=== PATIENT | female | born 1995 | race Caucasian/White ===

== ENCOUNTER 2017-04-24 10:26 | Emergency (ER) | payer MEDICAID ==
[~2017-04-24] VITALS: Ht 162.6 cm; Wt 117.9 kg
[~2017-04-24 10:26] MED LIST: DIFLUCAN150 MG PO; FLAGYL500 M1 PO; FLEXERIL10 MG PO; OMEPRAZOLE20 MG PO; ZANTAC 150150 MG PO; ZOFRAN24 MG PO; ZOLOFT 50MG TAB50 MG PO
--- OUTSIDE RECORDS SUMMARY | 2017-04-24 10:35 | External Medical Summary Rpt ---
Demographics Preferred Language Frisian Marital Status Unknown Faith Affiliation Unknown Race Unknown Ethnic Group Unknown Author Author , ZAYNAB WORTHY Address Unknown Phone Immunization Unable to retrieve immunization data due to connection failure with Immunization Registry. Please try again later.
--- OUTSIDE RECORDS SUMMARY | 2017-04-24 10:35 | External Medical Summary Rpt ---
Demographics Preferred Language Portuguese Marital Status Unknown Christian Affiliation Unknown Race Unknown Ethnic Group Unknown Author Author , ZAYNAB WORTHY Address Unknown Phone Immunization Unable to retrieve immunization data due to connection failure with Immunization Registry. Please try again later.
--- OUTSIDE RECORDS SUMMARY | 2017-04-24 10:35 | External Medical Summary Rpt ---
Author Author , ZAYNAB Pérez ZAYNAB Address Unknown Phone [email or web address] Purpose Continuity of Care Document - 01-04-2016 through 2016 Results Labs Lab Lab Date Result Refere Interp Status Commen Order Detail nces retati t Range on Urinalysis dipstick W Reflex Microscopic panel in Urine (02-17-2017 22:25) Bacteri 3+ O complet a 017 ed [Presen 22:25 ce] in Urine sedimen t by Light microsc opy Erythro OCC 0 complet cytes 017 ed [Presen 22:25 ce] in Urine sedimen t by Light microsc opy Epithel 20-50 0#/hp complet ial 017 f - ed cells.s 22:25 5#/hp quamous f [Presen ce] in Urine sedimen t by Microsc opy high power field Leukocy 5-10 O complet izabel 017 wbc/hpf ed [#/volu 22:25 me] in Urine Urinalysis dipstick W Reflex Microscopic panel in Urine (02-17-2017 22:25) Appeara CLEAR CLEAR complet nce of 017 ed Urine 22:25 Bilirub NEGATIV NEG complet in 017 E ed [Presen 22:25 ce] in Urine by Test strip Erythro NEGATIV NEG complet cytes 017 E ed [Presen 22:25 ce] in Urine Color YELLOW YELLOW complet of 017 ed Urine 22:25 Ketones NEGATIV NEG complet 017 E ed [Presen 22:25 ce] in Urine by Automat ed test strip Mucus 1+ NEG Abnorma complet [Presen 017 l ed ce] in 22:25 Urine sedimen t by Light microsc opy Nitrite NEGATIV NEG complet 017 E ed [Presen 22:25 ce] in Urine by Test strip Urobili 1.0 NEG complet nogen 017 ed [Presen 22:25 ce] in Urine by Test strip CHLAMYDIA AND GONORRHEA TESTING (01-04-2016 08:00) Chlamyd NEGATIV complet ia 016 E ed trachom 08:00 atis rRNA [Presen ce] in Unspeci fied specime n by Probe & target amplifi cation method Neisser NEGATIV complet ia 016 E ed gonorrh 08:00 oeae rRNA [Presen ce] in Unspeci fied specime n by Probe & target amplifi cation method Treponema pallidum IgG Ab [Presence] in Serum by Immunoassay (01-04-2016 08:00) Trepone NON-DALIA complet ma 016 CTIVE ed pallidu 08:00 m IgG Ab [Presen ce] in Serum by Immunoa ssay HEPATITIS C VIRUS SCREEN (01-04-2016 08:00) HEPATIT NON-DALIA complet IS C 016 CTIVE ed VIRUS 08:00 SCREEN HEPATITIS C VIRUS SCREEN (01-04-2016 08:00) IV DRUG NO complet USER 016 ed 08:00 MAN WHO NO complet SLEEPS 016 ed WITH 08:00 MEN DATE OF complet 016 6 ed SPECIME 08:00 N REFRIGE RATION SPECIME BLOOD complet N TYPE 016 ed 08:00 PREVIOU NO complet S 016 ed POSITIV 08:00 E HEPC ANTIBOD Y TEST HEPATIT Pending complet IS C 016 ed VIRUS 08:00 SCREEN CHLAMYDIA AND GONORRHEA TESTING (01-04-2016 08:00) COLLECT TV complet OR 016 ed 08:00 ETHNICI BLACK, complet TY 016 NON-HIS ed 08:00 PANIC KIT complet EXPIRAT 016 7 ed ION 08:00 DATE SYMPTOM NO complet S 016 ed 08:00 REASON VOLUNTE complet FOR 016 ER/MEDI ed REQUEST 08:00 SANTIAGO PROBLEM SPECIME URINE complet N 016 ed SOURCE 08:00 PREGNAN 04-11-2 NO complet T 016 ed 08:00 CHART [id number] complet NUMBER 016 ed 08:00 Chlamyd Pending complet ia 016 ed trachom 08:00 atis rRNA [Presen ce] in Unspeci fied specime n by Probe & target amplifi cation method Neisser Pending complet ia 016 ed gonorrh 08:00 oeae rRNA [Presen ce] in Unspeci fied specime n by Probe & target amplifi cation method Treponema pallidum IgG Ab [Presence] in Serum by Immunoassay (01-04-2016 08:00) COLLECT TV complet OR 016 ed 08:00 ETHNICI W complet TY 016 ed 08:00 PURPOSE DIAGNOS complet OF 016 TIC ed EXAM 08:00 SPECIME BLOOD complet N 016 ed SOURCE 08:00 CHART [id number] complet NUMBER 016 ed 08:00 Trepone Pending complet ma 016 ed pallidu 08:00 m IgG Ab [Presen ce] in Serum by Immunoa ssay
--- OUTSIDE RECORDS SUMMARY | 2017-04-24 10:35 | External Medical Summary Rpt ---
Author Author , ZAYNAB Pérez ZAYNAB Address Unknown Phone [email or web address] Purpose Continuity of Care Document - 01-04-2016 [...] NO complet T 016 ed 08:00 CHART [id number] complet NUMBER 016 ed 08:00 Chlamyd Pending [...] complet N 016 ed SOURCE 08:00 CHART [id number] complet NUMBER 016 ed 08:00 Trepone Pending complet ma 016 ed pallidu 08:00 m IgG Ab [Presen ce] in Serum by Immunoa ssay
--- OUTSIDE RECORDS SUMMARY | 2017-04-24 10:36 | External Medical Summary Rpt ---
Author Author ZAYNAB Gee, [employer] Address Unknown Phone Unavailable Results Choriogonadotropin.beta subunit [Units] in 24 hour Urine Observa Value Referen Units Interpr Notes Date tion ce etation Range Choriogon NEG No No No Mar 04 adotropin informati informati informati 2017 1:05 .beta on in on in on in AM subunit source source source [Units] data data data in 24 hour Urine Urinalysis dipstick W Reflex Microscopic panel in Urine Observa Value Referen Units Interpr Notes Date tion ce etation Range Appeara CLEAR CLEAR No No No February 17 nce of informa informa informa 2016 Urine tion in tion in tion in 10:25 source source source PM data data data Bacteri 3+ O No No No February 17 a informa informa informa 2016 [Presen tion in tion in tion in 10:25 ce] in source source source PM Urine data data data sedimen t by Light microsc opy Bilirub NEGATIV NEG No No No February 17 in E informa informa informa 2016 [Presen tion in tion in tion in 10:25 ce] in source source source PM Urine data data data by Test strip Erythro NEGATIV NEG No No No February 17 cytes E informa informa informa 2016 [Presen tion in tion in tion in 10:25 ce] in source source source PM Urine data data data Color YELLOW YELLOW No No No February 17 of informa informa informa 2017 Urine tion in tion in tion in 10:25 source source source PM data data data Glucose NEG No No No February 17 [Mass/vol informati informati informati 2016 ume] in on in on in on in 10:25 PM Urine by source source source Test data data data strip Ketones NEGATIV NEG mg/dL No No February 17 E informa informa 2016 [Presen tion in tion in 10:25 ce] in source source PM Urine data data by Automat ed test strip Mucus 1+ NEG No Abnorma No February 17 [Presen informa l informa 2016 ce] in tion in tion in 10:25 Urine source source PM sedimen data data t by Light microsc opy Nitrite NEGATIV NEG No No No February 17 E informa informa informa 2016 [Presen tion in tion in tion in 10:25 ce] in source source source PM Urine data data data by Test strip pH of 5.0 - 8.5 No Normal No February 17 Urine informati informati 2017 on in on in 10:25 PM source source data data Protein NEG mg/dL High No February 17 [Mass/vol informati 2017 ume] in on in 10:25 PM Urine by source Automated data test strip Erythro OCC 0 rbc/hpf No No February 17 cytes informa informa 2016 [Presen tion in tion in 10:25 ce] in source source PM Urine data data sedimen t by Light microsc opy Specific 1.005 - No Normal No February 17 gravity 1.030 informati informati 2016 of Urine on in on in 10:25 PM source source data data Epithel 20-50 0 - 5 #/hpf No No February 17 ial informa informa 2017 cells.s tion in tion in 10:25 quamous source source PM data data [Presen ce] in Urine sedimen t by Microsc opy high power field Urobili 1.0 NEG E.U./dL No No February 17 nogen informa informa 2016 [Presen tion in tion in 10:25 ce] in source source PM Urine data data by Test strip Leukocy [5 O wbc/hpf No No February 17 izabel wbc/hpf informa informa 2016 [#/volu ; 10 tion in tion in 10:25 me] in wbc/hpf source source PM Urine ] data data Choriogonadotropin.beta subunit [Units] in 24 hour Urine Observa Value Referen Units Interpr Notes Date tion ce etation Range Choriogon NEG No No No February 17 adotropin informati informati informati 2017 .beta on in on in on in 10:25 PM subunit source source source [Units] data data data in 24 hour Urine Urinalysis dipstick W Reflex Microscopic panel in Urine Observa Value Referen Units Interpr Notes Date tion ce etation Range Appeara CLEAR CLEAR No No No February 17 nce of informa informa informa 2016 Urine tion in tion in tion in 10:25 source source source PM data data data Bilirub NEGATIV NEG No No No February 17 in E informa informa informa 2016 [Presen tion in tion in tion in 10:25 ce] in source source source PM Urine data data data by Test strip Erythro NEGATIV NEG No No No February 17 cytes E informa informa informa 2016 [Presen tion in tion in tion in 10:25 ce] in source source source PM Urine data data data Color YELLOW YELLOW No No No February 17 of informa informa informa 2016 Urine tion in tion in tion in 10:25 source source source PM data data data Glucose NEG No No No February 17 [Mass/vol informati informati informati 2016 ume] in on in on in on in 10:25 PM Urine by source source source Test data data data strip Ketones NEGATIV NEG mg/dL No No February 17 E informa informa 2016 [Presen tion in tion in 10:25 ce] in source source PM Urine data data by Automat ed test strip Mucus 1+ NEG No Abnorma No February 17 [Presen informa l informa 2016 ce] in tion in tion in 10:25 Urine source source PM sedimen data data t by Light microsc opy Nitrite NEGATIV NEG No No No February 17 E informa informa informa 2016 [Presen tion in tion in tion in 10:25 ce] in source source source PM Urine data data data by Test strip pH of 5.0 - 8.5 No Normal No February 17 Urine informati informati 2016 on in on in 10:25 PM source source data data Protein NEG mg/dL High No February 17 [Mass/vol informati 2016 ume] in on in 10:25 PM Urine by source Automated data test strip Specific 1.005 - No Normal No February 17 gravity 1.030 informati informati 2016 of Urine on in on in 10:25 PM source source data data Urobili 1.0 NEG E.U./dL No No February 17 nogen informa informa 2016 [Presen tion in tion in 10:25 ce] in source source PM Urine data data by Test strip CHLAMYDIA AND GONORRHEA TESTING Observa Value Referen Units Interpr Notes Date tion ce etation Range COLLECT TV No No No No Jan 03 OR informa informa informa informa 2016 tion in tion in tion in tion in 8:00 AM source source source source data data data data ETHNICI BLACK, No No No No Jan 03 TY NON-HIS informa informa informa informa 2016 PANIC tion in tion in tion in tion in 8:00 AM source source source source data data data data KIT No No No No Jan 03 EXPIRAT 7 informa informa informa informa 2016 ION tion in tion in tion in tion in 8:00 AM DATE source source source source data data data data SYMPTOM NO No No No No Jan 03 S informa informa informa informa 2016 tion in tion in tion in tion in 8:00 AM source source source source data data data data REASON VOLUNTE No No No No Jan 03 FOR ER/MEDI informa informa informa informa 2016 REQUEST SANTIAGO tion in tion in tion in tion in 8:00 AM PROBLEM source source source source data data data data SPECIME URINE No No No No Jan 03 N informa informa informa informa 2016 SOURCE tion in tion in tion in tion in 8:00 AM source source source source data data data data PREGNAN NO No No No No Jan 03 T informa informa informa informa 2016 tion in tion in tion in tion in 8:00 AM source source source source data data data data CHART [id number] No No No No Jan 03 NUMBER informa informa informa informa 2016 tion in tion in tion in tion in 8:00 AM source source source source data data data data Chlamyd NEGATIV No No No NEGATIV Jan 03 ia E informa informa informa E 2016 trachom tion in tion in tion in RESULT= 8:00 AM atis source source source WITHIN rRNA data data data NORMAL [Presen ce] in LIMITSP Unspeci OSITIVE fied specime RESULT= n by Probe & ABNORMA target LEQUIVO SANTIAGO amplifi RESULT= cation method INDETER MINATEU NSATISF ACTORY RESULT= INVALID Neisser NEGATIV No No No NEGATIV Jan 03 ia E informa informa informa E 2016 gonorrh tion in tion in tion in RESULT= 8:00 AM oeae source source source WITHIN rRNA data data data NORMAL [Presen ce] in LIMITSP Unspeci OSITIVE fied specime RESULT= n by Probe & ABNORMA target LEQUIVO SANTIAGO amplifi RESULT= cation method INDETER MINATEU NSATISF ACTORY RESULT= INVALID THE APTIMA COMBO 2 ASSAY IS NOT INTENDE D FOR THE EVALUAT ION OF SUSPECT EDSEXUA L ABUSE OR FOR OTHER MEDICO- LEGAL INDICAT IONS. FOR THOSE PATIENT S FORWHOM A FALSE POSITIV E RESULT MAY HAVE ADVERSE PSYCHO- SOCIAL IMPACT, [facility] MM[facility]DS RETESTI NG.\.br \This report contain s patient informa tion that must be protect ed in accorda nce with the Health Insuran ce Portabi lity and Account ability Act. Treponema pallidum IgG Ab [Presence] in Serum by Immunoassay Observa Value Referen Units Interpr Notes Date tion ce etation Range COLLECT TV No No No No Jan 03 OR informa informa informa informa 2016 tion in tion in tion in tion in 8:00 AM source source source source data data data data ETHNICI W No No No No Jan 03 TY informa informa informa informa 2016 tion in tion in tion in tion in 8:00 AM source source source source data data data data PURPOSE DIAGNOS No No No No Jan 03 OF TIC informa informa informa informa 2016 EXAM tion in tion in tion in tion in 8:00 AM source source source source data data data data SPECIME BLOOD No No No No Jan 03 N informa informa informa informa 2016 SOURCE tion in tion in tion in tion in 8:00 AM source source source source data data data data CHART [id number] No No No No Jan 03 NUMBER informa informa informa informa 2016 tion in tion in tion in tion in 8:00 AM source source source source data data data data Trepone NON-DALIA No No No METHOD Jan [address] informa informa informa OF 2016 pallidu tion in tion in tion in ANALYSI 8:00 AM m IgG source source source S: Ab data data data EIANORM [Presen AL ce] in RANGE: Serum NON-DALIA by CTIVE\. Immunoa br\This ssay report contain s patient informa tion that must be protect ed in [place] nce with the Health Insuran ce Portabi lity and Account ability Act. HEPATITIS C VIRUS SCREEN Observa Value Referen Units Interpr Notes Date tion ce etation Range IV DRUG NO No No No No Jan 03 USER informa informa informa informa 2016 tion in tion in tion in tion in 8:00 AM source source source source data data data data MAN WHO NO No No No No Jan 03 SLEEPS informa informa informa informa 2016 WITH tion in tion in tion in tion in 8:00 AM MEN source source source source data data data data DATE OF No No No No Jan 03 6 informa informa informa informa 2016 SPECIME tion in tion in tion in tion in 8:00 AM N source source source source REFRIGE data data data data RATION SPECIME BLOOD No No No No Jan 03 N TYPE informa informa informa informa 2016 tion in tion in tion in tion in 8:00 AM source source source source data data data data PREVIOU NO No No No No Jan 03 S informa informa informa informa 2016 POSITIV tion in tion in tion in tion in 8:00 AM E HEPC source source source source ANTIBOD data data data data Y TEST HEPATIT NON-DALIA No No No METHOD Jan 03 IS C CTIVE informa informa informa OF 2016 VIRUS tion in tion in tion in ANALYSI 8:00 AM SCREEN source source source S: data data data EIANORM AL RANGE: NON REACTIV E\.br\T his report contain s patient informa tion that must be protect ed in accorda nce with the Health Insuran ce Portabi lity and Account ability Act. HEPATITIS C VIRUS SCREEN Observa Value Referen Units Interpr Notes Date tion ce etation Range IV DRUG NO No No No No Jan 03 USER informa informa informa informa 2016 tion in tion in tion in tion in 8:00 AM source source source source data data data data MAN WHO NO No No No No Jan 03 SLEEPS informa informa informa informa 2016 WITH tion in tion in tion in tion in 8:00 AM MEN source source source source data data data data DATE OF No No No No Jan 03 6 informa informa informa informa 2016 SPECIME tion in tion in tion in tion in 8:00 AM N source source source source REFRIGE data data data data RATION SPECIME BLOOD No No No No Jan 03 N TYPE informa informa informa informa 2016 tion in tion in tion in tion in 8:00 AM source source source source data data data data PREVIOU NO No No No No Jan 03 S informa informa informa informa 2016 POSITIV tion in tion in tion in tion in 8:00 AM E HEPC source source source source ANTIBOD data data data data Y TEST HEPATIT Pending No No No \.br\Jan 03 IS C informa informa informa is 2016 VIRUS tion in tion in tion in report 8:00 AM SCREEN source source source contain data data data s patient informa tion that must be protect ed in accorda nce with the Health Insuran ce Portabi lity and Account ability Act. CHLAMYDIA AND GONORRHEA TESTING Observa Value Referen Units Interpr Notes Date tion ce etation Range COLLECT TV No No No No Jan 03 OR informa informa informa informa 2016 tion in tion in tion in tion in 8:00 AM source source source source data data data data ETHNICI BLACK, No No No No Jan 03 TY NON-HIS informa informa informa informa 2016 PANIC tion in tion in tion in tion in 8:00 AM source source source source data data data data KIT No No No No Jan 03 EXPIRAT 7 informa informa informa informa 2016 ION tion in tion in tion in tion in 8:00 AM DATE source source source source data data data data SYMPTOM NO No No No No Jan 03 S informa informa informa informa 2016 tion in tion in tion in tion in 8:00 AM source source source source data data data data REASON VOLUNTE No No No No Jan 03 FOR ER/MEDI informa informa informa informa 2016 REQUEST SANTIAGO tion in tion in tion in tion in 8:00 AM PROBLEM source source source source data data data data SPECIME URINE No No No No Jan 03 N informa informa informa informa 2016 SOURCE tion in tion in tion in tion in 8:00 AM source source source source data data data data PREGNAN NO No No No No Jan 03 T informa informa informa informa 2016 tion in tion in tion in tion in 8:00 AM source source source source data data data data CHART [id number] No No No No Jan 03 NUMBER informa informa informa informa 2016 tion in tion in tion in tion in 8:00 AM source source source source data data data data Chlamyd Pending No No No No Jan 03 ia informa informa informa informa 2016 trachom tion in tion in tion in tion in 8:00 AM atis source source source source rRNA data data data data [Presen ce] in Unspeci fied specime n by Probe & target amplifi cation method Neisser Pending No No No \.br\Jan 03 ia informa informa informa is 2016 gonorrh tion in tion in tion in report 8:00 AM oeae source source source contain rRNA data data data s [Presen patient ce] in Unspeci informa fied tion specime that n by must be Probe & target protect ed in amplifi accorda cation nce method with the Health Insuran ce Portabi lity and Account ability Act. Treponema pallidum IgG Ab [Presence] in Serum by Immunoassay Observa Value Referen Units Interpr Notes Date tion ce etation Range COLLECT TV No No No No Jan 03 OR informa informa informa informa 2016 tion in tion in tion in tion in 8:00 AM source source source source data data data data ETHNICI W No No No No Jan 03 TY informa informa informa informa 2016 tion in tion in tion in tion in 8:00 AM source source source source data data data data PURPOSE DIAGNOS No No No No Jan 03 OF TIC informa informa informa informa 2016 EXAM tion in tion in tion in tion in 8:00 AM source source source source data data data data SPECIME BLOOD No No No No Jan 03 N informa informa informa informa 2016 SOURCE tion in tion in tion in tion in 8:00 AM source source source source data data data data CHART [id number] No No No No Jan 03 TARI eason informa informa informa 2016 tion in tion in tion in tion in 8:00 AM source source source source data data data data Trepone Pending No No No \.br\Jan 03 chacha eason informa informa is 2016 pallidu tion in tion in tion in report 8:00 AM m IgG source source source contain Ab data data data s [Presen patient ce] in Serum informa by tion Immunoa that ssay must be protect ed in accorda nce with the Health Insuran ce Portabi lity and Account ability Act.
--- OUTSIDE RECORDS SUMMARY | 2017-04-24 10:36 | External Medical Summary Rpt ---
[...] source source data data data data CHART [id number] No No No No Jan 03 NUMBER [...] HAVE ADVERSE PSYCHO- SOCIAL IMPACT, [facility].\.br \This report contain s [...] source source data data data data CHART [id number] No No No No Jan 03 NUMBER [...] tion that must be protect ed in [place] nce with the Health Insuran ce Portabi [...] source source data data data data CHART [id number] No No No No Jan 03 NUMBER [...] source source data data data data CHART [id number] No No No No Jan 03 TARI [...]
[2017-04-24] MEDS ORDERED: SKYLA13.5 MG IU (10:39)
--- NOTE | 2017-04-24 11:06 | Urgent Treatment Center Report ---
History of Present Issue Date/Time Seen by Provider 04/24/17 1040 Visit Reason Pt arrived:Walked Presenting Problem:PT STATES MIGRAINE FOR PAST TWO WEEKS Location if Accident: Onset of symptoms date/time:/ or onset unknown for:MEDICAL HX UNKNOWN Have you (or family members/close friends) recently traveled outside the [place]? N If Yes, where/when: Have you had exposure to infectious disease within the past month? TB? Other? Specify: c/o another migraine. Reporting migraine x 2 weeks. Once discussed, sounds like headaches that has developed into a migraine since yesterday. Not uncommon per patient. Nausea and light sensitivity now. "I don't get that until they get bad like this". reporting headache 07/04. All over. Can't localize. Ibuprofen and tylenol hasn't helped. Hasn't taken or tried anything in the last couple days other than daily topamax. "Normally I can take something and lay down in a dark room but I tried that when this started. I just kept taking my topamax each day thinking it would go away eventually." Reports being prescribed unknown migraine medication to use PRN but has been out so hasn't tried it. Doesn't know medication and "it doesn't work anyways so doesn't matter". Hx of migraines. Seeing a neuro opthamologist at . Reports scheduled for MRI brain and Cspine , spinal tap 06/06/17 and sleep study on 07/13/17 with FU in Dec. Denies any new symptoms or worsening severity compared to previous migraines. "It doesn't get this bad that often but when it does, I typically just come in for a shot and it gets better". pt here w/ a catshovel driver today. Source patient Exam Limitations no limitations ALLERGIES Coded Allergies: No Known Allergies (03/04/17) Home Medications Reported Medications Levonorgestrel (Kayleen) 13.5 MG IU . History Medical History General CAD? No Angina: No [place]: No Hypertension? No Hyperlipidemia? No CHF? No DVT? No PE? No COPD? No Asthma? No Anemia? No GERD? Yes Gastric ulcers? No GI Bleed? No Hernia? No Thyroid Problems? No Hypothyroidism? No CVA? No Seizures? No Diabetes? No Renal Insuffiency? No UTI? No Stones? No BPH? No GB Disease: No Nephritic Syndrome? No Asplenia? No Hepatitis? No Sickle Cell Disease? No Arthritis? No Migraines? Yes Cataracts? No Glaucoma? No MRSA? No HIV? No TB? No Anxiety? No Depression? No Cancer? No More? 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 Respiratory denies shortness of breath Cardiovascular denies palpitations Gastrointestinal denies abdominal pain, nausea, denies vomiting Genitourinary denies: no symptoms reported. Musculoskeletal denies joint pain, denies muscle pain, denies muscle stiffness Skin denies change in color, denies lumps Psychiatric/Neurological see HPI, denies numbness, denies tingling, denies weakness Physical Exam Vital Signs Vital Signs Date Time Temp Pulse Resp B/P Pulse O2 O2 Flow FiO2 Ox Delivery Rate 04/24 1055 20 04/24 1036 97.9 70 20 131/83 98 General Appearance no apparent distress, obese, very talkative, not shielding light, not guarding movements Eye Exam - bilateral eye normal exam Ear, Nose, Throat norm melecio EACs and TMs Neck normal inspection, non-tender, supple, full range of motion Respiratory Status No: respiratory distress. Lung Sounds anterior: lungs clear. posterior: lungs clear. bilateral: lungs clear. 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 No Results/Orders Current Medication Orders Sig/Malvin Start time Last Medication Dose Route Stop Time Status Admin Ketorolac 60 MG ONCE ONE 04/24 1100 DC 04/24 Tromethamine IM 04/24 1101 1055 Promethazine HCl 25 MG ONCE ONE 04/24 1100 DC 04/24 IM 04/24 1101 1055 Sodium Chloride 25 ML ONCE ONE 04/24 1100 DC 04/24 IV 04/24 1114 1056 Promethazine HCl 0 .STK-MED ONE 04/24 1053 DC .ROUTE Ketorolac 0 .STK-MED ONE 04/24 1052 DC Tromethamine .ROUTE Progress [facility] Progress Notes Date 04/24/17 Time 1118 Comment Reporting migraine "much improved". Currently 01/02. ready to go home and lay down "and hope it resolves completely". Agrees to call neurologist if doesn't. Departure Departure Time of Disposition 1122 Disposition DC Home or Self Care(routine) Clinical Impression Primary Impression: Migraine Qualifiers: Migraine type: chronic without aura Status migrainosus presence: without status migrainosus Intractability: not intractable Qualified Code: G43.709 - Chronic migraine without aura, not intractable, without status migrainosus Condition STABLE Referrals NO REFERRAL neuro opthamologist: Seek immediate medical attention for new or worsening symptoms. Schedule sooner follow up if not resolved or continues to reoccur more frequently or more severe then typically. Keep upcoming appointments for work up. Patient Instructions DI for Migraine Additional Instructions Go home and rest. Lots of fluids. Promethazine causes drowsiness. You received this in clinic along with your toradol that you have taken in the past. Be sure, no driving, operating machinary or caring for small children today. Discharge Counseling Counseled pt/family regarding diagnosis, medications/RX, home care, follow up needs at [phone]
--- NOTE | 2017-04-24 11:06 | Urgent Treatment Center Report ---
History of Present Issue Date/Time Seen by Provider 04/24/17 1040 Visit Reason Pt arrived:Walked Presenting Problem:PT STATES MIGRAINE FOR PAST TWO WEEKS Location if Accident: Onset of symptoms date/time:/ or onset unknown for:MEDICAL HX UNKNOWN Have you (or family members/close friends) recently traveled outside the [place]? N If Yes, where/when: Have you had exposure to infectious disease within the past month? TB? Other? Specify: c/o another migraine. Reporting migraine x 2 weeks. Once discussed, sounds like headaches that has developed into a migraine since yesterday. Not uncommon per patient. Nausea and light sensitivity now. "I don't get that until they get bad like this". reporting headache 07/04. All over. Can't localize. Ibuprofen and tylenol hasn't helped. Hasn't taken or tried anything in the last couple days other than daily topamax. "Normally I can take something and lay down in a dark room but I tried that when this started. I just kept taking my topamax each day thinking it would go away eventually." Reports being prescribed unknown migraine medication to use PRN but has been out so hasn't tried it. Doesn't know medication and "it doesn't work anyways so doesn't matter". Hx of migraines. Seeing a neuro opthamologist at . Reports scheduled for MRI brain and Cspine , spinal tap 06/06/17 and sleep study on 07/13/17 with FU in Dec. Denies any new symptoms or worsening severity compared to previous migraines. "It doesn't get this bad that often but when it does, I typically just come in for a shot and it gets better". pt here w/ a box truck driver today. Source patient Exam Limitations no limitations ALLERGIES Coded Allergies: No Known Allergies (03/04/17) Home Medications Reported Medications Levonorgestrel (Kayleen) 13.5 MG IU . History Medical History General CAD? No Angina: No [place]: No Hypertension? No Hyperlipidemia? No CHF? No DVT? No PE? No COPD? No Asthma? No Anemia? No GERD? Yes Gastric ulcers? No GI Bleed? No Hernia? No Thyroid Problems? No Hypothyroidism? No CVA? No Seizures? No Diabetes? No Renal Insuffiency? No UTI? No Stones? No BPH? No GB Disease: No Nephritic Syndrome? No Asplenia? No Hepatitis? No Sickle Cell Disease? No Arthritis? No Migraines? Yes Cataracts? No Glaucoma? No MRSA? No HIV? No TB? No Anxiety? No Depression? No Cancer? No More? 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 Respiratory denies shortness of breath Cardiovascular denies palpitations Gastrointestinal denies abdominal pain, nausea, denies vomiting Genitourinary denies: no symptoms reported. Musculoskeletal denies joint pain, denies muscle pain, denies muscle stiffness Skin denies change in color, denies lumps Psychiatric/Neurological see HPI, denies numbness, denies tingling, denies weakness Physical Exam Vital Signs Vital Signs Date Time Temp Pulse Resp B/P Pulse O2 O2 Flow FiO2 Ox Delivery Rate 04/24 1055 20 04/24 1036 97.9 70 20 131/83 98 General Appearance no apparent distress, obese, very talkative, not shielding light, not guarding movements Eye Exam - bilateral eye normal exam Ear, Nose, Throat norm melecio EACs and TMs Neck normal inspection, non-tender, supple, full range of motion Respiratory Status No: respiratory distress. Lung Sounds anterior: lungs clear. posterior: lungs clear. bilateral: lungs clear. 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 No Results/Orders Current Medication Orders Sig/Malvin Start time Last Medication Dose Route Stop Time Status Admin Ketorolac 60 MG ONCE ONE 04/24 1100 DC 04/24 Tromethamine IM 04/24 1101 1055 Promethazine HCl 25 MG ONCE ONE 04/24 1100 DC 04/24 IM 04/24 1101 1055 Sodium Chloride 25 ML ONCE ONE 04/24 1100 DC 04/24 IV 04/24 1114 1056 Promethazine HCl 0 .STK-MED ONE 04/24 1053 DC .ROUTE Ketorolac 0 .STK-MED ONE 04/24 1052 DC Tromethamine .ROUTE Progress [facility] Progress Notes Date 04/24/17 Time 1118 Comment Reporting migraine "much improved". Currently 01/02. ready to go home and lay down "and hope it resolves completely". Agrees to call neurologist if doesn't. Departure Departure Time of Disposition 1122 Disposition DC Home or Self Care(routine) Clinical Impression Primary Impression: Migraine Qualifiers: Migraine type: chronic without aura Status migrainosus presence: without status migrainosus Intractability: not intractable Qualified Code: G43.709 - Chronic migraine without aura, not intractable, without status migrainosus Condition STABLE Referrals NO REFERRAL neuro opthamologist: Seek immediate medical attention for new or worsening symptoms. Schedule sooner follow up if not resolved or continues to reoccur more frequently or more severe then typically. Keep upcoming appointments for work up. Patient Instructions DI for Migraine Additional Instructions Go home and rest. Lots of fluids. Promethazine causes drowsiness. You received this in clinic along with your toradol that you have taken in the past. Be sure, no driving, operating machinary or caring for small children today. Discharge Counseling Counseled pt/family regarding diagnosis, medications/RX, home care, follow up needs at [phone]
[2017-04-24 11:31] VITALS: BP 131/83
== END 2017-04-24 11:31 | disposition home or self-care (01) ==
LOC: UTC 10:26
DX: G43.709 Chronic migraine without aura, not intractable, without status migrainosus (principal); K21.9 Gastro-esophageal reflux disease without esophagitis

== ENCOUNTER 2017-06-18 11:50 | Emergency (ER) | payer MEDICAID ==
[~2017-06-18] VITALS: Ht 162.6 cm; Wt 117.9 kg
[~2017-06-18 11:50] MED LIST changes: +SKYLA13.5 MG IU
--- NOTE | 2017-06-18 12:29 | Urgent Treatment Center Report ---
History of Present Issue Date/Time Seen by Provider 06/18/17 1200 Visit Reason Pt arrived:Walked Presenting Problem:PT C/O MIGRAINE Location if Accident: Onset of symptoms date/time:/ or onset unknown for:MEDICAL HX UNKNOWN Have you (or family members/close friends) recently traveled outside the [place]? N If Yes, where/when: Have you had exposure to infectious disease within the past month? TB? Other? Specify: c/o migraine and requesting toradol and phenergan. Hx of migraines. Seen by me late March for same symptoms but that had been ongoing for 2 weeks. Was already seeing neurologist and already undergoing multiple tests. Refer to that note. Since that time, "they found a blockage in my sinuses". Has not seen ENT. Reports neurologist has "several more tests" they want to set up. Meds have been changed. Now on amitriptyline 10mg qHS, bisoprolol 5mg daily ("for fast heartrate but also thinking it might help by migraines"), acetazolamide 500mg daily. Still sumitriptan PRN "but it doesn't help". This particular migraine has been ongoing x 1 week. "I don't come until I can't make it any longer". Associated w/ typical symptoms of nausea, photosensitivity and sensitivity to smell. Same location in bilateral temporals "radiating back throughout my head". Described as "between being stabbed in my head and my head feeling like one thousand pounds". Pain currently 8/10. no longer tries anything OTC "because never works". pt does have a trencher driver with her. Source patient Exam Limitations no limitations ALLERGIES Coded Allergies: No Known Allergies (03/04/17) Home Medications Reported Medications Levonorgestrel (Kayleen) 13.5 MG IU . History Medical History General CAD? No Angina: No [place]: No Hypertension? No Hyperlipidemia? No CHF? No DVT? No PE? No COPD? No Asthma? No Anemia? No GERD? Yes Gastric ulcers? No GI Bleed? No Hernia? No Thyroid Problems? No Hypothyroidism? No CVA? No Seizures? No Diabetes? No Renal Insuffiency? No UTI? No Stones? No BPH? No GB Disease: No Nephritic Syndrome? No Asplenia? No Hepatitis? No Sickle Cell Disease? No Arthritis? No Migraines? Yes Cataracts? No Glaucoma? No MRSA? No HIV? No TB? No Anxiety? No Depression? No Cancer? No More? 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 denies: ear pain, nose discharge, nose congestion, throat pain. Respiratory denies shortness of breath Cardiovascular denies chest pain, denies palpitations Gastrointestinal see HPI, denies abdominal pain, denies vomiting Genitourinary denies: dysuria, frequency. Musculoskeletal denies muscle stiffness, denies neck pain Skin denies lesions, denies lumps, denies rash Psychiatric/Neurological see HPI, denies other (dizziness) Physical Exam Vital Signs Vital Signs Date Time Temp Pulse Resp B/P Pulse O2 O2 Flow FiO2 Ox Delivery Rate 06/18 1234 18 06/18 1212 97.9 74 16 102/72 97 General Appearance no apparent distress, obese Eye Exam - bilateral eye normal exam Ear, Nose, Throat normal ENT inspection Neck non-tender, supple, full range of motion Respiratory Status No: respiratory distress, productive cough, non productive cough. Lung Sounds anterior: lungs clear. posterior: lungs clear. bilateral: lungs clear. 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 No Results/Orders Current Medication Orders Sig/Malvin Start time Last Medication Dose Route Stop Time Status Admin Ketorolac 0 .STK-MED ONE 06/18 1230 DC Tromethamine .ROUTE Promethazine HCl 0 .STK-MED ONE 06/18 1230 DC .ROUTE Ketorolac 60 MG ONCE ONE 06/18 1215 DC 06/18 Tromethamine IM 06/18 1216 1234 Promethazine HCl 25 MG ONCE ONE 06/18 1215 DC 06/18 IM 06/18 1216 1234 Sodium Chloride 25 ML ONCE ONE 06/18 1215 DC IV 06/18 1229 Progress [facility] Progress Notes Date 06/18/17 Time 1304 Comment pt reports pain relieved. No pain. Migraine resolved. 0. Ready for discharge. Grandmother here to pick her up Departure Departure Time of Disposition 1305 Disposition DC Home or Self Care(routine) Clinical Impression Primary Impression: Migraine Qualifiers: Migraine type: unspecified Status migrainosus presence: with status migrainosus Intractability: not intractable Qualified Code: G43.901 - Migraine, unspecified, not intractable, with status migrainosus Condition STABLE Referrals Britni Cisneros (Family) as needed. Be sure to report this visit to PCP and neurologist. Patient Instructions DI for Migraine Additional Instructions Be sure to FU w/ neuro. Be sure they are aware of today's visit, this week long migraine that required treatment. Important they are kept aware. Discharge Counseling Counseled pt/family regarding diagnosis, medications/RX, home care, follow up needs at 1306
[2017-06-18 13:08] VITALS: BP 102/72
== END 2017-06-18 13:11 | disposition home or self-care (01) ==
LOC: UTC 11:50
DX: G43.901 Migraine, unspecified, not intractable, with status migrainosus (principal); K21.9 Gastro-esophageal reflux disease without esophagitis

== ENCOUNTER → 2017-08-23 | Outpatient (CLI) | payer MEDICAID ==
[~2017-08-23] MED LIST changes: +ACETAZOLAMIDE250 M2 PO; +AMITRIPTYLINE 225 MG PO; +BISOPROLOL 5MG T5 MG PO; +LEVOFLOXACIN 5500 M1 PO; +ZOLOFT100 MG PO
[2017-08-23 12:12] LABS: AEROMONAS NOT DETECTED (NOT DETECTE); ASTROVIRUS NOT DETECTED (NOT DETECTE); CYCLOSPORA CAYETANENSIS NOT DETECTED (NOT DETECTE); E COLI O157 NOT DETECTED (NOT DETECTE); ENTEROAGGREGATIVE E COLI NOT DETECTED (NOT DETECTE); ENTEROPATHOGENIC E COLI NOT DETECTED (NOT DETECTE); ENTEROTOXIGENIC E COLI NOT DETECTED (NOT DETECTE); NOROVIRUS NOT DETECTED (NOT DETECTE); SAPOVIRUS NOT DETECTED (NOT DETECTE); SHIGA-LIKE TOXIN PROD. E COLI NOT DETECTED (NOT DETECTE); SHIGELLA/ENTEROINVASIVE E COLI NOT DETECTED (NOT DETECTE); VIBRIO CHOLERAE NOT DETECTED (NOT DETECTE)
== END ==
LOC: LAB 12:06
PROVIDERS: Nurse Practitioner Family
DX: A09 Infectious gastroenteritis and colitis, unspecified (principal)

== ENCOUNTER → 2017-08-29 | Outpatient (CLI) | payer MEDICAID ==
--- NOTE | 2017-08-29 15:03 | RADIOLOGY REPORT PS360 ---
US THYROID HISTORY: RT THYROID NODULE ORDERING PHYSICIAN: Britni BOYIKN PATIENT AGE: 22 years COMPARISON: None FINDINGS: Right lobe: 4 x 1.3 x 1.2 cm. There is homogeneous echogenicity. No obvious nodule Left lobe: 3.5 x 1 x 1.3 cm. Homogeneous echogenicity without obvious nodule Isthmus: Unremarkable IMPRESSION: Negative thyroid ultrasound. No thyroid nodules apparent
--- NOTE | 2017-08-29 15:03 | RADIOLOGY REPORT PS360 ---
US THYROID HISTORY: RT THYROID NODULE ORDERING PHYSICIAN: Britni BOYKIN PATIENT AGE: 22 years COMPARISON: None FINDINGS: Right lobe: 4 x 1.3 x 1.2 cm. There is homogeneous echogenicity. No obvious nodule Left lobe: 3.5 x 1 x 1.3 cm. Homogeneous echogenicity without obvious nodule Isthmus: Unremarkable IMPRESSION: Negative thyroid ultrasound. No thyroid nodules apparent
== END ==
LOC: RAD 10:39
DX: E04.1 Nontoxic single thyroid nodule (principal)

== ENCOUNTER 2017-08-30 03:31 | Emergency (ER) | payer MEDICAID ==
[~2017-08-30] VITALS: Ht 162.6 cm; Wt 117.9 kg
[~2017-08-30 03:31] MED LIST changes: -ACETAZOLAMIDE250 M2 PO; -AMITRIPTYLINE 225 MG PO; -BISOPROLOL 5MG T5 MG PO; -LEVOFLOXACIN 5500 M1 PO; -ZOLOFT100 MG PO
[2017-08-30] MEDS ORDERED: LEVOFLOXACIN 5500 M1 PO (03:40)
[2017-08-30] MEDS ORDERED: ZOLOFT100 MG PO (03:42)
[2017-08-30] MEDS ORDERED: AMITRIPTYLINE 225 MG PO (03:42)
[2017-08-30] MEDS ORDERED: ACETAZOLAMIDE250 M2 PO (03:43)
[2017-08-30] MEDS ORDERED: BISOPROLOL 5MG T5 MG PO (03:43)
--- OUTSIDE RECORDS SUMMARY | 2017-08-30 03:47 | External Medical Summary Rpt | CCD ---
Author Author , ZAYNAB Organization ZAYNAB Address Unknown Phone [email or web address] Purpose Continuity of Care Document - 01-04-2016 [...] complet N 016 ed SOURCE 08:00 PREGNAN NO complet T 016 ed 08:00 CHART [id number] complet NUMBER 016 ed 08:00 Chlamyd Pending [...] complet N 016 ed SOURCE 08:00 CHART [id number] complet NUMBER 016 ed 08:00 Trepone Pending complet ma 016 ed pallidu 08:00 m IgG Ab [Presen ce] in Serum by Immunoa ssay
--- OUTSIDE RECORDS SUMMARY | 2017-08-30 03:47 | External Medical Summary Rpt | CCD ---
Demographics Preferred Language Welsh Marital Status Unknown Mandaeism Affiliation Unknown Race Unknown Ethnic Group Unknown Author Author , ZAYNAB WORTHY Address Unknown Phone Immunization No patient found.
--- OUTSIDE RECORDS SUMMARY | 2017-08-30 03:47 | External Medical Summary Rpt | CCD ---
Demographics Preferred Language Albanian Marital Status Unknown Protestant Affiliation Unknown Race Unknown Ethnic Group Unknown Author Author , ZAYNAB WORTHY Address Unknown Phone Immunization No patient found.
--- OUTSIDE RECORDS SUMMARY | 2017-08-30 03:47 | External Medical Summary Rpt | CCD ---
Author Author , ZAYNAB Organization ZAYNAB Address Unknown Phone [email or web address] Purpose Continuity of Care Document - 01-04-2016 [...] NO complet T 016 ed 08:00 CHART [id number] complet NUMBER 016 ed 08:00 Chlamyd Pending [...] complet N 016 ed SOURCE 08:00 CHART [id number] complet NUMBER 016 ed 08:00 Trepone Pending complet ma 016 ed pallidu 08:00 m IgG Ab [Presen ce] in Serum by Immunoa ssay
--- OUTSIDE RECORDS SUMMARY | 2017-08-30 03:48 | External Medical Summary Rpt ---
Author Author [employer] Gee, [employer] Organization [employer] Address Unknown Phone Unavailable Results DIARRHEA PANEL,PCR Observa Value Referen Units Interpr Notes Date tion ce etation Range Adenovi NOT NOT No No No Nov 29 eliana DETECTE DETECTE informa informa informa 2017 40+41 D tion in tion in tion in 8:43 AM Ag source source source [Presen data data data ce] in Stool Aeromon NOT NOT No No No Nov 29 as DETECTE DETECTE informa informa informa 2017 salmoni D tion in tion in tion in 8:43 AM chapis source source source [Presen data data data ce] in Unspeci fied specime n Astrovi NOT NOT No No No Nov 29 eliana DETECTE DETECTE informa informa informa 2017 [Presen D tion in tion in tion in 8:43 AM ce] in source source source Stool data data data by Electro n microsc opy Campylo NOT NOT No No No Nov 29 bacter DETECTE DETECTE informa informa informa 2017 sp Ab D tion in tion in tion in 8:43 AM [Presen source source source ce] in data data data Serum Clostri NOT NOT No No No Nov 29 dium DETECTE DETECTE informa informa informa 2017 diffici D tion in tion in tion in 8:43 AM le source source source toxin data data data A+B [Presen ce] in Stool Cryptos NOT NOT No No No Nov 29 poridiu DETECTE DETECTE informa informa informa 2017 m sp Ag D tion in tion in tion in 8:43 AM source source source [Presen data data data ce] in Unspeci fied specime n Cyclosp NOT NOT No No No Nov 29 ora DETECTE DETECTE informa informa informa 2017 cayetan D tion in tion in tion in 8:43 AM jana source source source [Presen data data data ce] in Unspeci fied specime n Escheri NOT NOT No No No Nov 29 vicenta DETECTE DETECTE informa informa informa 2017 coli D tion in tion in tion in 8:43 AM [Presen source source source ce] in data data data Unspeci fied specime n by Culture FDA method Escheri NOT NOT No No No Nov 29 vicenta DETECTE DETECTE informa informa informa 2017 coli D tion in tion in tion in 8:43 AM [Presen source source source ce] in data data data Unspeci fied specime n by Culture FDA method Escheri NOT NOT No No No Nov 29 vicenta DETECTE DETECTE informa informa informa 2017 coli D tion in tion in tion in 8:43 AM Shiga-l source source source oumar data data data toxin 1 assa Escheri NOT NOT No No No Nov 29 vicenta DETECTE DETECTE informa informa informa 2017 coli D tion in tion in tion in 8:43 AM O157:H7 source source source data data data [Presen ce] in Stool by Organis m specifi c culture Entamoe NOT NOT No No No Nov 29 ba DETECTE DETECTE informa informa informa 2017 histoly D tion in tion in tion in 8:43 AM barbie source source source [Presen data data data ce] in Stool by Trichro me stain Giardia NOT NOT No No No Nov 29 DETECTE DETECTE informa informa informa 2017 lamblia D tion in tion in tion in 8:43 AM Ag source source source [Presen data data data ce] in Stool Norovir NOT NOT No No No Nov 29 us Ag DETECTE DETECTE informa informa informa 2017 [Presen D tion in tion in tion in 8:43 AM ce] in source source source Stool data data data Stool NOT NOT No No No Nov 29 Plesiom DETECTE DETECTE informa informa informa 2017 onas D tion in tion in tion in 8:43 AM shigell source source source oides data data data DNA detec Rotavir NOT NOT No No No Nov 29 us RNA DETECTE DETECTE informa informa informa 2017 detecti D tion in tion in tion in 8:43 AM on by source source source probe data data data and tar Salmone NOT NOT No No No Nov 29 lla sp DETECTE DETECTE informa informa informa 2017 DNA D tion in tion in tion in 8:43 AM [Identi source source source fier] data data data in Unspeci fied specime n by Probe & target amplifi cation method Caliciv NOT NOT No No No Nov 29 irus DETECTE DETECTE informa informa informa 2017 [Identi D tion in tion in tion in 8:43 AM fier] source source source in data data data Stool by Electro n microsc opy Escheri NOT NOT No No No Nov 29 vicenta DETECTE DETECTE informa informa informa 2017 coli D tion in tion in tion in 8:43 AM [Presen source source source ce] in data data data Unspeci fied specime n by Culture FDA method Escheri NOT NOT No No No Nov 29 vicenta DETECTE DETECTE informa informa informa 2017 coli D tion in tion in tion in 8:43 AM SXT source source source gene+H7 data data data gene [Identi fier] in Unspeci fied specime n by Probe & target amplifi cation method Vibrio NOT NOT No No No Nov 29 cholera DETECTE DETECTE informa informa informa 2017 e DNA D tion in tion in tion in 8:43 AM [Presen source source source ce] in data data data Unspeci fied specime n by Probe & target amplifi cation method Vibrio NOT NOT No No No Nov 29 sp DNA DETECTE DETECTE informa informa informa 2017 [Identi D tion in tion in tion in 8:43 AM fier] source source source in data data data Unspeci fied specime n by Probe & target amplifi cation method Vibrio NOT NOT No No No Nov 29 sp DETECTE DETECTE informa informa informa 2017 identif D tion in tion in tion in 8:43 AM ied in source source source Stool data data data by Herb m specifi c culture Choriogonadotropin.beta subunit [Units] in 24 hour Urine [...] No February 17 adotropin informati informati informati 2016 .beta on in on in on in [...] source source data data data data CHART [id number] No No No No Jan 03 NUMBER [...] MAY HAVE ADVERSE PSYCHO- SOCIAL IMPACT, THE CDCRECO MMENDS RETESTI NG.\.br \This report contain s [...] source source data data data data CHART [id number] No No No No Jan 03 NUMBER [...] tion that must be protect ed in [facility] with the [employer] lity and Account ability Act. HEPATITIS [...] data DATE OF No No No No Dec 11 6 informa informa informa informa 2016 SPECIME [...] tion that must be protect ed in [place] [facility] with the [employer] ce Portabi lity and Account ability Act. CHLAMYDIA AND GONORRHEA TESTING Observa Value Referen Units Interpr Notes Date tion ce etation Range COLLECT TV No No No No Dec 11 OR informa informa informa informa 2016 tion [...] source source data data data data CHART [id number] No No No No Jan 03 NUMBER [...] source source data data data data CHART [id number] No No No No Jan 03 NUMBER informa informa informa informa 2016 tion in tion in tion in tion in 8:00 AM source source source source data data data data Trepone Pending No No No \.br\Jan 03 ma informa informa informa is 2016 pallidu tion in tion in tion in report 8:00 AM m IgG source source source contain Ab data data data s [Presen patient ce] in Serum informa by tion Immunoa that ssay must be protect ed in [place] with the Health [employer] ce Portabi lity and Account ability Act.
--- OUTSIDE RECORDS SUMMARY | 2017-08-30 03:48 | External Medical Summary Rpt ---
[...] source source data data data data CHART [id number] No No No No Jan 03 NUMBER [...] source source data data data data CHART [id number] No No No No Jan 03 NUMBER [...] tion that must be protect ed in [facility] with the Health [employer] Portabi lity and [...] tion that must be protect ed [place] [facility] with the Health [employer] ce Portabi [...] source source data data data data CHART [id number] No No No No Jan 03 NUMBER [...] source source data data data data CHART [id number] No No No No Jan 03 NUMBER [...]
[2017-08-30 04:14] LABS: HEMOGLOBIN 14.6 g/dL (12.2-16.2); LYMPH # 3.2 K/mm3 (0.7-4.5); LYMPH % 24.1 % (10-50.0)
--- NOTE | 2017-08-30 05:11 | Emergency Room Report ---
History of Present Illness Time Seen by [id number] Presenting Problem in Triage Pt arrived:Walked Presenting Problem:PT C/O VOMITING AND DIARRHEA FOR THE PAST TWO WEEKS. 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 N Clinical Suspician of Infection? N Mental Status: 1 - Regular (Normal Baseline) Sepsis Risk:Low Sepsis Risk Have you (or family members/close friends) recently traveled outside the [place]? N If Yes, where/when: Have you had exposure to infectious disease within the past month? N TB? Other? Specify: Source patient, RN notes reviewed, family, old records Exam Limitations no limitations Comment abd pain assoc with vomiting and nonbldy diarrhea over the last week- has seen pcp and neg stool sample- no fever or rash or swollen jts - no def exposure Cardiac Chest Pain Chest pain indicative of cardiac No Timing/Duration this evening Severity moderate ALLERGIES Coded Allergies: No Known Allergies (03/04/17) Home Medications Reported Medications Levofloxacin (Levofloxacin 500MG TAB) 500 MG PO DAILY #10 Amitriptyline Hcl (Amitriptyline) 25 MG PO QHS SERTRALINE HYDROCHLORIDE (Zoloft 100MG) 100 MG PO DAILY Acetazolamide (Acetazolamide 250MG Tablet) 250 MG PO DAILY BISOPROLOL FUMARATE (Bisoprolol 5MG) 2.5 MG PO DAILY Levonorgestrel (Kayleen) 13.5 MG IU . History Medical History General CAD? No Angina: No HI: No Hypertension? No Hyperlipidemia? No CHF? No DVT? No PE? No COPD? No Asthma? No Anemia? No GERD? Yes Gastric ulcers? No GI Bleed? No Hernia? No Thyroid Problems? No Hypothyroidism? No CVA? No Seizures? No Diabetes? No Renal Insuffiency? No End Stage Renal Disease? No UTI? No Stones? No BPH? No GB Disease: No Nephritic Syndrome? No Asplenia? No Hepatitis? No Sickle Cell Disease? No Arthritis? No Migraines? Yes Cataracts? No Glaucoma? No MRSA? No HIV? No TB? No Anxiety? No Depression? No Cancer? No More? 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 Respiratory denies cough, denies shortness of breath, denies wheezing Cardiovascular denies chest pain, denies syncope Gastrointestinal see HPI, abdominal pain, diarrhea, vomiting Genitourinary denies: dysuria, frequency, hesitancy, hematuria. Musculoskeletal denies back pain, denies joint pain, denies joint swelling, denies neck pain Skin denies rash Psychiatric/Neurological denies headache, denies seizure Physical Exam Vital Signs Vital Signs Date Time Temp Pulse Resp B/P Pulse O2 O2 Flow FiO2 Ox Delivery Rate 08/30 0336 98.4 86 16 98 - WBC >12,000 or <4,000 or 10% bands? 2 or more SIRS Criteria Met? B/P:/ MAP:81 Creatinine >2.0? UA output<0.5ml/kg/hr for 2 hrs? Platelet count >100,000? Lactate >2.0mmol/1? INR >1.2 or PTT > than 60 sec? Evidence of Organ Dysfunction? Provider documented clinical suspician of infection? N Sepsis Criteria Count: 0 Sepsis Risk: Low Sepsis Risk General Appearance no apparent distress Eye Exam Comment patch over rt eye Ear, Nose, Throat normal ENT inspection Neck supple Respiratory Status No: respiratory distress. 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 No Results/Orders Laboratory Tests 08/30/17 0405: Sodium 141, Potassium 3.6, Chloride 106, Carbon Dioxide 25, BUN 9, Creatinine 0.8, Estimated Creat Clear 205 H, Estimated GFR (MDRD) 90, Glucose 116 H, Calcium 8.8, Total Bilirubin 0.3, AST 64 H, ALT 87 H, Alkaline Phosphatase 99, Total Protein 7.6, Albumin 3.5, Globulin 4.1 H, Albumin/Globulin Ratio 0.9 L, Amylase 30, Lipase 151, WBC 13.5 H, RBC 5.35, Hgb 14.6, Hct 44.3, MCV 82.9, RDW 15.5, Plt Count 393, MPV 7.8, Gran % 46.8, Gran # 6.3, Lymphocytes % 24.1, Monocytes % 3.8, Eosinophils % 24.7 H, Basophils % 0.6, Lymphocytes # 3.2, Monocytes # 0.5, Eosinophils # 3.3 H, Basophils # 0.1, PUBS MCHC 32.9, MCH 27.2 Current Medication Orders Sig/Malvin Start time Last Medication Dose Route Stop Time Status Admin Ondansetron HCl 4 MG ONCE ONE 08/30 415 DC 08/30 IV 08/30 416 0410 Sodium Chloride 1,000 ML .Q1H1M 08/30 415 DC 08/30 IV 08/30 0515 0409 Sodium Chloride 10 ML PRN PRN 08/30 415 AC IV 08/31 0408 Ondansetron HCl 0 .STK-MED ONE 08/30 409 DC .ROUTE Sodium Chloride 1,000 ML .STK-MED ONE 08/30 408 DC IV Sodium Chloride 10 ML PRN PRN 08/30 034 AC IV 08/31 0345 Orders Procedure Date/time Status DIET-NOTHING BY MOUTH 08/30 B Active SED RATE 08/30 0511 Active DIARRHEA PANEL, PCR 08/[address] ABD & PELVIS W/O CONTRAST 08/30 0446 Active SERUM , QUAL 08/30 041 Complete IV SALINE LOCK 08/[address] ABD/PELVIS REQ 08/30 345 Active LIPASE 08/30 345 Complete CBC WITH AUTO DIFF 08/30 345 Complete CHEM 12 PROFILE 08/30 345 Complete AMYLASE 08/30 345 Complete URINALYSIS/COMPLETE 08/30 335 Active URINE 08/30 033 Active XRAY/CT/US XRAY/CT/US CT abdomen, pelvis CT interpretation by discussed w/radiologist Time results known: 526 CT Results abnormal (see report) Departure Departure Time of Disposition 05 Disposition DC Home or Self Care(routine) Clinical Impression Primary Impression: Gastroenteritis Secondary Impressions: Eosinophilia Condition STABLE Referrals Britni Cisneros (Family) Patient Instructions DI for Vomiting -- Adult Additional Instructions fluids and call pcp this am Discharge Counseling Counseled pt/family regarding diagnosis, test results, medications/RX, follow up needs ED Critical Care Critical Care No at [id number]
[2017-08-30 05:37] VITALS: BP 110/74
--- NOTE | 2017-08-30 07:44 | RADIOLOGY REPORT PS360 ---
CT ABD PELVIS W/O CONTRAST CLINICAL INDICATION: Nausea and vomiting with abdominal pain, periumbilical pain ABD PAIN, N/V ORDERING PHYSICIAN: Viki Macias MD PATIENT AGE: 22 years COMPARISON: None TECHNIQUE: Axial images obtained with sagittal and coronal reformats. PROCEDURE: Oral Contrast: None IV Contrast: None . FINDINGS: 5 mm noncalcified nodule right lung base posteriorly. Severe hepatic steatosis. Prior cholecystectomy without ductal dilatation. There is a 2.8 cm lesion in the right hepatic lobe near the gallbladder fossa incompletely evaluated without contrast. This measures 19 Hounsfield units. Evaluation for liver lesions limited without IV contrast. Mild splenomegaly at 16 cm. The pancreas, adrenal glands, and kidneys are unremarkable. There is a small right paracentral abdominal wall hernia containing fat superior to the umbilicus. Unremarkable appendix. No evidence of intestinal obstruction or free air. No focal inflammatory change or diverticulitis. Scattered small lymph nodes are present in the mesentery's nonspecific. No abnormal fluid collections. No acute bony anomalies. There is an IUD present. IMPRESSION: 1. No acute finding. 2. 2.7 cm lesion of the right hepatic lobe in the gallbladder fossa. Consider ultrasound to determine the cystic or solid nature. If solid then, 3 [address] with contrast suggested for further evaluation. 3. 5 mm right lower lobe nodule nonspecific 4. Hepatic steatosis
== END 2017-08-30 05:38 | disposition home or self-care (01) ==
LOC: ER 03:31
PROVIDERS: Emergency Medicine
DX: K52.9 Noninfective gastroenteritis and colitis, unspecified (principal); D72.1 Eosinophilia
CPT/HCPCS: J2405

== ENCOUNTER → 2017-08-31 | Outpatient (CLI) | payer MEDICAID ==
[~2017-08-31] MED LIST changes: +ACETAZOLAMIDE250 M2 PO; +AMITRIPTYLINE 225 MG PO; +BISOPROLOL 5MG T5 MG PO; +LEVOFLOXACIN 5500 M1 PO; +ZOLOFT100 MG PO
== END ==
LOC: LAB 15:36
DX: A09 Infectious gastroenteritis and colitis, unspecified (principal)

== ENCOUNTER → 2017-09-01 | Outpatient (CLI) | payer MEDICAID ==
[2017-09-01 09:31] LABS: HEMOGLOBIN 14.2 g/dL (12.2-16.2); LYMPH # 2.4 K/mm3 (0.7-4.5); LYMPH % 22.2 % (10-50.0)
[2017-09-01 10:38] LABS: BUN 9 mg/dL (7-18); GFR (ESTIMATED) 78 ML/MIN (59-)
== END ==
LOC: LAB 09:20
PROVIDERS: Nurse Practitioner Family
DX: A09 Infectious gastroenteritis and colitis, unspecified (principal); R74.8 Abnormal levels of other serum enzymes; R11.2 Nausea with vomiting, unspecified

== ENCOUNTER → 2017-09-07 | Outpatient (CLI) | payer MEDICAID ==
--- NOTE | 2017-09-07 10:19 | RADIOLOGY REPORT PS360 ---
US RUQ-(ABD LTD)1ORGAN/QUAD/FU HISTORY: Liver lesion LIVER CYST ORDERING PHYSICIAN: Naga Mcduffie MD PATIENT AGE: 22 years COMPARISON: CT scan of 08/30/2017 FINDINGS: The study is technically difficult due to patient body habitus. PANCREAS:Not well delineated due to overlying bowel gas LIVER:Hepatic steatosis with increased echogenicity of the liver for through transmission of sound. There is a 2.7 cm area of decreased echogenicity in the central aspect of the liver which may correspond to the CT abnormality. Unfortunately, this is not adequately evaluated due to the technical limitations. No other significant hepatic anomalies are evident. RIGHT KIDNEY:Unremarkable. Normal size and echogenicity. No hydronephrosis GALLBLADDER: Prior cholecystectomy. Common bile duct is normal at 5 mm. IMPRESSION: 1. Fatty liver. 2. 2.7 cm hypoechoic area in the central aspect of the liver likely corresponding to the CT abnormality. Unfortunately cannot determine cystic or solid nature due to technical limitations. Three-phase CT with contrast suggested for further evaluation if clinically warranted. If patient has old studies at another institution the negative be submitted for comparison as well.
== END ==
LOC: RAD 08:08
DX: K76.89 Other specified diseases of liver (principal)